=== PATIENT | male | born 1990 | race Caucasian/White ===

== ENCOUNTER 2017-03-13 23:32 | Emergency (ER) | payer SELFPAY | END 2017-03-13 23:52 | disposition left against medical advice (07) | LOC: D.ER 23:32 | DX: Z02.9 Encounter for administrative examinations, unspecified (principal) ==

== ENCOUNTER 2017-03-14 00:40 | Emergency (ER) | payer SELFPAY | END 2017-03-14 01:26 | disposition home or self-care (01) | LOC: D.ER 00:40 | DX: S91.332A Puncture wound without foreign body, left foot, initial encounter (principal); W45.0XXA Nail entering through skin, initial encounter; Y93.89 Activity, other specified; Y92.019 Unspecified place in single-family (private) house as the place of occurrence of the external cause; F17.200 Nicotine dependence, unspecified, uncomplicated ==